=== PATIENT | male | born 1975 | race Caucasian/White ===

== ENCOUNTER 2017-10-09 16:34 | Inpatient (IN) | payer OTHER ==
[~2017-10-09] VITALS: Ht 185.4 cm; Wt 140.6 kg
[2017-10-09] MEDS ORDERED: TRAZODONE HCL150 MG ORAL (16:35)
[2017-10-09 16:45] VITALS: BP 113/69
[2017-10-09] MEDS ORDERED: Activated Charcoal 50gm/240ml Btl ORAL ONE (16:45)
[2017-10-09] MEDS ORDERED: Naloxone 0.4mg/ml Inj IVP ONE (16:45)
[2017-10-09 17:05] VITALS: BP 131/77
[2017-10-09 17:09] LABS: BASOPHILS % (AUTO) 1.2 % (0.0-2.0); EOSINOPHILS % (AUTO) 0.3 % (0.0-3.0); LYMPHOCYTES % (AUTO) 36.6 % (20.0-45.0); MEAN CORPUSCULAR HEMOGLOBIN 31.9 PG (27.0-31.0); MEAN CORPUSCULAR HGB CONC 33.5 G/DL (32.0-36.0); MEAN CORPUSCULAR VOLUME 95 FL (80-99); MEAN PLATELET VOLUME 7.4 FL (6.5-10.1); MONOCYTES % (AUTO) 5.3 % (1.0-10.0); NEUTROPHILS % (AUTO) 56.6 % (45.0-75.0); PLATELET COUNT 186 K/UL (150-450); RED BLOOD COUNT 4.56 M/UL (4.70-6.10); RED CELL DISTRIBUTION WIDTH 13.2 % (11.6-14.8); WHITE BLOOD COUNT 6.3 K/UL (4.8-10.8)
--- NOTE | 2017-10-09 17:19 | Emergency Room Report ---
History of Present Illness General Chief Complaint: Overdose Source: EMS Present Illness HPI 41-year-old male presents ED status post overdose. Per EMS patient sent text message to his friend stating endorsing suicidal ideation. Friend called 911. On patient at home unresponsive. Patient had alcohol bottles and trazodone bottle asked him. Patient lethargic upon arrival but protecting airway. Patient unable to provide any additional history at this time. Unclear whether patient has psychiatric history. No other aggravating or leading factors. No other associated symptoms Allergies: Coded Allergies: UNABLE TO ASSESS (Unverified , 10/09/17) Patient History Past Medical History: none Past Surgical History: none Pertinent Family History: none Social History: Reports: alcohol use, drug use, Denies: smoking Immunizations: UTD Reviewed Nursing Documentation: PMH: Agreed, PSxH: Agreed Nursing Documentation-PMH Past Medical History Deferred: Pt Cognitively Impaired Review of Systems All Other Systems: limited Physical Exam Vital Signs Date Time Temp Pulse Resp B/P (MAP) Pulse Ox O2 Delivery O2 Flow Rate FiO2 10/09/17 16:31 116 20 127/87 96 Nasal Cannula 4.0 10/09/17 16:45 98.2 Sp02 EP Interpretation: reviewed, normal General Appearance: lethargic, obese Head: normocephalic ENT: hearing grossly normal, normal pharynx, no angioedema, normal voice Neck: normal inspection Respiratory: chest non-tender, lungs clear, normal breath sounds, speaking full sentences Cardiovascular #1: tachycardia Gastrointestinal: normal bowel sounds, non tender, soft, non-distended, no guarding, no rebound Rectal: deferred Genitourinary: no CVA tenderness Musculoskeletal: back normal Neurologic: other - lethargic Psychiatric: other - lethargic Skin: normal inspection Lymphatic: normal inspection Medical Decision Making Diagnostic Impression: Primary Impression: Drug overdose Qualified Codes: T50.902A - Poisoning by unspecified drugs, medicaments and biological substances, intentional self-harm, initial encounter Additional Impressions: Suicidal behavior Qualified Codes: T14.91XA - Suicide attempt, initial encounter Alcohol intoxication Qualified Codes: F10.921 - Alcohol use, unspecified with intoxication delirium ER Course Hospital Course 41-year-old male presents to ED with altered mental status. Took trazodone and alcohol in suicide attempt Differential diagnoses include: Post ictal, Dilantin toxicity, alcohol toxicity , intracranial injury Clinical course patient placed on stretcher. On cardiac exercise physiologist. After initial history and physical ordered labs, IV fluids, EKG, CT brain. NG Tube placed - charcoal given narcan given without change Labs reviewed-electrolytes okay, no leukocytosis, hemoglobin/hematocrit stable, ETOH > 400, Utox negative CT brain shows no acute pathology Patient is still very altered cannot be medically cleared at this time. Will require admission psych evaluation upon admission case discussed with Dr. Araujo and he agreed to accept the patient to his service for further care and support i. I feel this is a highly complex case requiring extensive working including EKG/Rhythm strip, Xray/CT/US, Blood/urine lab work, repeat exams while in ED, and administration of strong opiates/narcotics for pain control, admission to hospital or close patient follow up. Diagnosis - drug overdose, suicidal ideation, alcohol intoxication Admitted to telemetry in serious condition Labs Test 10/09/17 16:39 10/09/17 17:40 White Blood Count 6.3 K/UL (4.8-10.8) Red Blood Count 4.56 M/UL (4.70-6.10) Hemoglobin 14.6 G/DL (14.2-18.0) Hematocrit 43.5 % (42.0-52.0) Mean Corpuscular Volume 95 FL (80-99) Mean Corpuscular Hemoglobin 31.9 PG (27.0-31.0) Mean Corpuscular Hemoglobin Concent 33.5 G/DL (32.0-36.0) Red Cell Distribution Width 13.2 % (11.6-14.8) Platelet Count 186 K/UL (150-450) Mean Platelet Volume 7.4 FL (6.5-10.1) Neutrophils (%) (Auto) 56.6 % (45.0-75.0) Lymphocytes (%) (Auto) 36.6 % (20.0-45.0) Monocytes (%) (Auto) 5.3 % (1.0-10.0) Eosinophils (%) (Auto) 0.3 % (0.0-3.0) Basophils (%) (Auto) 1.2 % (0.0-2.0) Sodium Level 145 MMOL/L (136-145) Potassium Level 3.3 MMOL/L (3.5-5.1) Chloride Level 107 MMOL/L (98-107) Carbon Dioxide Level 29 MMOL/L (21-32) Anion Gap 9 mmol/L (5-15) Blood Urea Nitrogen 16 mg/dL (7-18) Creatinine 1.0 MG/DL (0.55-1.30) Estimat Glomerular Filtration Rate > 60 mL/min (>60) Glucose Level 136 MG/DL (74-106) Calcium Level 8.3 MG/DL (8.5-10.1) Total Bilirubin 0.4 MG/DL (0.2-1.0) Aspartate Amino Transf (AST/SGOT) 31 U/L (15-37) Alanine Aminotransferase (ALT/SGPT) 40 U/L (12-78) Alkaline Phosphatase 69 U/L (46-116) Total Protein 7.3 G/DL (6.4-8.2) Albumin 3.6 G/DL (3.4-5.0) Globulin 3.7 g/dL Albumin/Globulin Ratio 1.0 (1.0-2.7) Salicylates Level 3.6 ug/mL (2.8-20) Acetaminophen Level < 2 MCG/ML (10-30) Serum Alcohol 423 mg/dL Urine Opiates Screen Negative (NEGATIVE) Urine Barbiturates Screen Negative (NEGATIVE) Phencyclidine (PCP) Screen Negative (NEGATIVE) Urine Amphetamines Screen Negative (NEGATIVE) Urine Benzodiazepines Screen Negative (NEGATIVE) Urine Cocaine Screen Negative (NEGATIVE) Urine Marijuana (THC) Screen Negative (NEGATIVE) EKG Diagnostic Results Rate: tachycardiac Rhythm: NSR ST Segments: no acute changes ASA given to the pt in ED: No Rhythm Strip Diag. Results EP Interpretation: yes Rhythm: NSR, no PVC's, no ectopy CT/MRI/US Diagnostic Results CT/MRI/US Diagnostic Results : Imaging Test Ordered: CT Head Impression no acute process Last Vital Signs Date Time Temp Pulse Resp B/P (MAP) Pulse Ox O2 Delivery O2 Flow Rate FiO2 10/09/17 17:05 98.2 122 25 131/77 98 Nasal Cannula 4.0 Status: improved Disposition: ADMITTED INPATIENT Condition: Serious BRYCE CARMICHAEL M.D. Oct 09, 2017 17:19
[2017-10-09 17:23] LABS: ANION GAP 9 mmol/L (5-15); CALCIUM 8.3 MG/DL (8.5-10.1); CARBON DIOXIDE 29 MMOL/L (21-32); CHLORIDE 107 MMOL/L (98-107); GLOMERULAR FILTRATION RATE > 60 mL/min (>60); POTASSIUM 3.3 MMOL/L (3.5-5.1); SODIUM 145 MMOL/L (136-145)
[2017-10-09 17:44] LABS: ALANINE AMINOTRANSFERASE 40 U/L (12-78); ALCOHOL 423 mg/dL; ASPARTATE AMINO TRANSFERASE 31 U/L (15-37); TOTAL PROTEIN 7.3 G/DL (6.4-8.2)
[2017-10-09 18:14] LABS: ACETAMINOPHEN < 2 MCG/ML (10-30)
[2017-10-09 18:43] VITALS: BP 135/85
[2017-10-09 19:22] VITALS: BP 148/72
[2017-10-09] MEDS ORDERED: Thiamine HCl 100 MG, Folic Acid 1 MG, Magnesium Sulfate 2,000 MG, Multivitamin - 12 Inj... IV ONE ×5 (19:30)
[2017-10-09 20:00] VITALS: BP 148/88
[2017-10-09 20:41] LABS: ABG PCO2 46.2 mmHg (35.0-45.0)
[2017-10-09 20:42] LABS: ABG ALLEN TEST POSITIVE; ABG BASE EXCESS 0.9
[2017-10-09] MEDS ORDERED: D5 1/2NS 1,000 ML IV SCH (20:45)
[2017-10-09] MEDS ORDERED: Potassium Chloride 40 MEQ in Sodium Chloride 500ML 550 ML IVPB ONE (21:00)
[2017-10-09] MEDS: Heparin 5000 units/ml inj SUBQ SCH (21:23)
[2017-10-09 22:40] LABS: ALANINE AMINOTRANSFERASE 37 U/L (12-78); ANION GAP 11 mmol/L (5-15); CALCIUM 7.9 MG/DL (8.5-10.1); CARBON DIOXIDE 28 MMOL/L (21-32); CHLORIDE 109 MMOL/L (98-107); GLOMERULAR FILTRATION RATE > 60 mL/min (>60); MAGNESIUM 1.8 MG/DL (1.8-2.4); POTASSIUM 3.9 MMOL/L (3.5-5.1); SODIUM 148 MMOL/L (136-145)
[2017-10-09 23:42] LABS: BASOPHILS % (AUTO) 0.5 % (0.0-2.0); LYMPHOCYTES % (AUTO) 31.3 % (20.0-45.0); MEAN CORPUSCULAR HEMOGLOBIN 33.5 PG (27.0-31.0); MEAN CORPUSCULAR HGB CONC 34.9 G/DL (32.0-36.0); MEAN CORPUSCULAR VOLUME 96 FL (80-99); MEAN PLATELET VOLUME 6.9 FL (6.5-10.1); MONOCYTES % (AUTO) 3.1 % (1.0-10.0); PLATELET COUNT 189 K/UL (150-450); RED BLOOD COUNT 4.28 M/UL (4.70-6.10); RED CELL DISTRIBUTION WIDTH 13.6 % (11.6-14.8); WHITE BLOOD COUNT 5.3 K/UL (4.8-10.8)
[2017-10-10] VITALS (7 sets, daily range): BP systolic 127–157; BP diastolic 66–100
[2017-10-10] MEDS: Thiamine 100mg in D5W 55ml IVPB SCH ×2 (01:06→23:57)
[2017-10-10] MEDS: Folic Acid 1 MG, Magnesium Sulfate 2,000 MG, Multivitamin - 12 Injection 10 ML in NS w/... IV SCH ×2 (01:07→23:58)
[2017-10-10] MEDS: Heparin 5000 units/ml inj SUBQ SCH ×2 (09:19→21:14)
--- NOTE | 2017-10-10 09:40 | Diagnostic Imaging Report ---
Indications: Altered mental status Technique: Spiral acquisitions obtained through the brain. Angled axial and coronal 5 x 5 mm slices were reconstructed. Total dose length product 1495 mGycm. CTDI vol(s) 70 mGy. Dose reduction achieved using automated exposure control Comparison: None Findings: No acute intracranial hemorrhage or edema. No mass effect or midline shift. Normal ramírez-white differentiation there is normal size ventricles. There is prominent retrocerebellar CSF density, either a prominent cisterna magna or retrocerebellar arachnoid cyst. There is minimal ethmoid sinus mucosal disease. Intact calvarium. Visualized orbits are unremarkable. There is a nasogastric tube in place. Prominent soft tissue in the left nasal fossa could represent a mucous retention cyst or focal polyposis. 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 The CT scanner at [facility] is accredited by the [employer] and the scans are performed using protocols designed to limit radiation exposure to as low as reasonably achievable to attain images of sufficient resolution adequate for diagnostic evaluation.
[2017-10-10] MEDS: D5 1/2NS 1,000 ML IV SCH ×3 (09:58→23:45)
--- NOTE | 2017-10-10 13:50 | History and Physical ---
History of Present Illness General Date patient seen: Oct 10, 2017 Time patient seen: 14:00 Reason for Hospitalization: Overdose Present Illness HPI 42y/o male with pmh of HTN, depression who presents with suicidal attempt. Per EMS, patient sent text message to his friend stating endorsing suicidal ideation. Friend called 911. Pt found to be unresponsive at home. Patient had alcohol bottles and trazodone bottle with him which was empty. Pt lethargic but noted to be able to protect his airway. In ER, pt have NGT placed and activated charcoal given. Narcan also given w/o change. EtOH>400. Utox negative. VSS. CT brain neg. Allergies: Coded Allergies: No Known Allergies (Unverified , 10/09/17) Medication History Scheduled Trazodone* (Trazodone*), 50 MG ORAL BEDTIME, (Reported) Patient History Healthcare decision maker Resuscitation status Full Code Advanced Directive on File No Past Medical/Surgical History Past Medical/Surgical History: (1) HTN (hypertension) (2) Depression Family History Family History: Patient reports no known family medical history. Social History Social History: (1) Alcohol abuse Review of Systems Constitutional: Reports: no symptoms Eye: Reports: no symptoms ENT: Reports: no symptoms Respiratory: Reports: no symptoms Cardiovascular: Reports: no symptoms Gastrointestinal: Reports: nausea Genitourinary: Reports: no symptoms Musculoskeletal: Reports: no symptoms Skin: Reports: no symptoms Psychiatric: Reports: no symptoms Neurological: Reports: no symptoms Endocrine: Reports: no symptoms Hematologic/Lymphatic: Reports: no symptoms All Other Systems: negative except mentioned in HPI Physical Exam Physical Exam Narrative General: alert, cooperative, no distress, appears stated age Head: normocephalic, without obvious abnormality, atraumatic Eyes: conjunctivae/corneas clear. PERRL, EOM's intact Throat: lips, mucosa, and tongue normal. MMM Neck: supple, symmetrical, trachea midline, and no JVD Lungs: clear to auscultation bilaterally Heart: regular rate and rhythm, S1, S2 normal, no murmur, click, rub or gallop Abdomen: soft, non-tender, non-distended, bowel sounds normal; no masses or organomegaly Extremities: extremities normal, atraumatic, no cyanosis or edema Pulses: 2+ and symmetric Skin: skin color, texture, turgor normal; no rashes or lesions Neurologic: grossly normal, no focal deficits Last 24 Hour Vital Signs Date Time Temp Pulse Resp B/P (MAP) Pulse Ox O2 Delivery O2 Flow Rate FiO2 10/10/17 12:12 98 Nasal Cannula 2.0 28 10/10/17 12:12 Nasal Cannula 2.0 28 10/10/17 12:00 97.9 91 20 132/86 98 Nasal Cannula 2.0 10/10/17 12:00 97.9 10/10/17 08:00 97.9 108 20 141/97 98 Nasal Cannula 2.0 10/10/17 07:21 103 10/10/17 04:10 97.9 118 21 130/78 95 Nasal Cannula 3.0 10/10/17 04:00 118 10/10/17 00:34 97.5 119 20 127/66 95 Nasal Cannula 2.0 10/10/17 00:00 124 10/09/17 20:43 97 Nasal Cannula 2.0 28 10/09/17 20:43 Nasal Cannula 2.0 28 10/09/17 20:05 129 10/09/17 20:00 97.7 115 20 148/88 96 Nasal Cannula 2.0 10/09/17 19:50 99.1 126 23 148/72 96 Nasal Cannula 2.0 10/09/17 19:22 99.1 126 23 148/72 96 Nasal Cannula 2.0 10/09/17 18:43 99.1 113 18 135/85 98 Nasal Cannula 2.0 10/09/17 17:05 98.2 122 25 131/77 98 Nasal Cannula 4.0 10/09/17 16:50 120 25 Nasal Cannula 4.0 10/09/17 16:45 98.2 139 25 113/69 94 Nasal Cannula 4.0 10/09/17 16:31 116 20 127/87 96 Nasal Cannula 4.0 Intake and Output 10/10/17 10/11/17 19:00 07:00 Intake Total 500 ml Balance 500 ml IV Total 500 ml Laboratory Tests Test 10/09/17 16:30 10/09/17 16:39 10/09/17 17:40 10/09/17 20:30 Aspartate Amino Transf (AST/SGOT) 32 U/L (15-37) 31 U/L (15-37) White Blood Count 6.3 K/UL (4.8-10.8) Red Blood Count 4.56 M/UL (4.70-6.10) L Hemoglobin 14.6 G/DL (14.2-18.0) Hematocrit 43.5 % (42.0-52.0) Mean Corpuscular Volume 95 FL (80-99) Mean Corpuscular Hemoglobin 31.9 PG (27.0-31.0) H Mean Corpuscular Hemoglobin Concent 33.5 G/DL (32.0-36.0) Red Cell Distribution Width 13.2 % (11.6-14.8) Platelet Count 186 K/UL (150-450) Mean Platelet Volume 7.4 FL (6.5-10.1) Neutrophils (%) (Auto) 56.6 % (45.0-75.0) Lymphocytes (%) (Auto) 36.6 % (20.0-45.0) Monocytes (%) (Auto) 5.3 % (1.0-10.0) Eosinophils (%) (Auto) 0.3 % (0.0-3.0) Basophils (%) (Auto) 1.2 % (0.0-2.0) Sodium Level 145 MMOL/L (136-145) Potassium Level 3.3 MMOL/L (3.5-5.1) L Chloride Level 107 MMOL/L (98-107) Carbon Dioxide Level 29 MMOL/L (21-32) Anion Gap 9 mmol/L (5-15) Blood Urea Nitrogen 16 mg/dL (7-18) Creatinine 1.0 MG/DL (0.55-1.30) Estimat Glomerular Filtration Rate > 60 mL/min (>60) Glucose Level 136 MG/DL (74-106) H Calcium Level 8.3 MG/DL (8.5-10.1) L Total Bilirubin 0.4 MG/DL (0.2-1.0) Alanine Aminotransferase (ALT/SGPT) 40 U/L (12-78) Alkaline Phosphatase 69 U/L (46-116) Total Protein 7.3 G/DL (6.4-8.2) Albumin 3.6 G/DL (3.4-5.0) Globulin 3.7 g/dL Albumin/Globulin Ratio 1.0 (1.0-2.7) Salicylates Level 3.6 ug/mL (2.8-20) Acetaminophen Level < 2 MCG/ML (10-30) L Serum Alcohol 423 mg/dL Hepatitis A IgM Antibody Negative (Negative) Hepatitis B Surface Antigen Negative (Negative) Hepatitis B Core IgM Antibody Negative (Negative) Hepatitis C Antibody 0.2 s/co ratio (0.0-0.9) Urine Opiates Screen Negative (NEGATIVE) Urine Barbiturates Screen Negative (NEGATIVE) Phencyclidine (PCP) Screen Negative (NEGATIVE) Urine Amphetamines Screen Negative (NEGATIVE) Urine Benzodiazepines Screen Negative (NEGATIVE) Urine Cocaine Screen Negative (NEGATIVE) Urine Marijuana (THC) Screen Negative (NEGATIVE) Arterial Blood pH 7.377 (7.350-7.450) Arterial Blood Partial Pressure CO2 46.2 mmHg (35.0-45.0) H Arterial Blood Partial Pressure O2 91.1 mmHg (75.0-100.0) Arterial Blood HCO3 26.5 mmol/L (22.0-26.0) H Arterial Blood Oxygen Saturation 96.2 % (92.0-98.0) Arterial Blood Base Excess 0.9 Dhiraj Test Positive Test 10/09/17 22:00 10/09/17 23:35 Sodium Level 148 MMOL/L (136-145) H Potassium Level 3.9 MMOL/L (3.5-5.1) Chloride Level 109 MMOL/L (98-107) H Carbon Dioxide Level 28 MMOL/L (21-32) Anion Gap 11 mmol/L (5-15) Blood Urea Nitrogen 16 mg/dL (7-18) Creatinine 1.0 MG/DL (0.55-1.30) Estimat Glomerular Filtration Rate > 60 mL/min (>60) Glucose Level 124 MG/DL (74-106) H Calcium Level 7.9 MG/DL (8.5-10.1) L Magnesium Level 1.8 MG/DL (1.8-2.4) Alanine Aminotransferase (ALT/SGPT) 37 U/L (12-78) Salicylates Level 2.8 ug/mL (2.8-20) White Blood Count 5.3 K/UL (4.8-10.8) Red Blood Count 4.28 M/UL (4.70-6.10) L Hemoglobin 14.3 G/DL (14.2-18.0) Hematocrit 41.1 % (42.0-52.0) L Mean Corpuscular Volume 96 FL (80-99) Mean Corpuscular Hemoglobin 33.5 PG (27.0-31.0) H Mean Corpuscular Hemoglobin Concent 34.9 G/DL (32.0-36.0) Red Cell Distribution Width 13.6 % (11.6-14.8) Platelet Count 189 K/UL (150-450) Mean Platelet Volume 6.9 FL (6.5-10.1) Neutrophils (%) (Auto) 65.0 % (45.0-75.0) Lymphocytes (%) (Auto) 31.3 % (20.0-45.0) Monocytes (%) (Auto) 3.1 % (1.0-10.0) Eosinophils (%) (Auto) 0.0 % (0.0-3.0) Basophils (%) (Auto) 0.5 % (0.0-2.0) Height (Feet): 6 Height (Inches): 1.00 Weight (Pounds): 310 Medications Current Medications Medications (Trade) Dose Ordered Sig/Isaura Route PRN Reason Start Time Stop Time Status Last Admin Dose Admin Acetaminophen (Tylenol) 650 mg Q6H PRN ORAL Mild Pain/Temp > 100.5 10/09/17 21:45 11/08/17 21:44 10/10/17 11:01 Dextrose/Sodium Chloride 1,000 ml @ 125 mls/hr Q8H IV 10/10/17 07:45 11/09/17 07:44 10/10/17 09:58 Folic Acid 1 mg/ Magnesium Sulfate 2000 mg/ Multivitamins 10 ml/Sodium Chloride 1,014.2 ml @ 125 mls/ hr Q24H IV 10/09/17 23:30 11/08/17 23:29 10/10/17 01:07 Heparin Sodium (Porcine) (Heparin 5000 units/ml) 5,000 units Q12HR SUBQ 10/09/17 21:00 11/08/17 20:59 10/10/17 09:19 Ondansetron HCl (Zofran) 4 mg Q4H PRN IVP Nausea & Vomiting 10/09/17 21:45 11/08/17 21:44 Thiamine HCl 100 mg/Dextrose 56 ml @ 112 mls/hr Q24H IVPB 10/09/17 23:30 12/15/17 23:29 10/10/17 01:06 Assessment/Plan Problem List: (1) Suicidal overdose ICD Codes: T50.902A - Poisoning by unspecified drugs, medicaments and biological substances, intentional self-harm, initial encounter SNOMED: 19318372, 05729971 (2) Alcohol intoxication with blood level over 0.3 ICD Codes: R78.0 - Finding of alcohol in blood SNOMED: 064579360 (3) Trazodone overdose (4) Depression ICD Codes: F32.9 - Major depressive disorder, single episode, unspecified SNOMED: 86969055 (5) HTN (hypertension) ICD Codes: I10 - Essential (primary) hypertension SNOMED: 16909829 (6) Hypokalemia ICD Codes: E87.6 - Hypokalemia SNOMED: 71120306 Status: stable Assessment/Plan Admit inpt Psych consulted Pt's mental status appears to have improved Will remove NGT today Monitor for signs of withdrawal or further toxicity Repeat labs in AM IVFs Resume diet DC pending psych eval D/w pt, RN, SW/CM regarding mgmt and dispo Debbie Vidal M.D. Oct 10, 2017 13:50
[2017-10-10] MEDS ORDERED: Simethicone 80mg tab ORAL PRN (19:00)
[2017-10-11 04:00] VITALS: BP 151/95
[2017-10-11 07:38] VITALS: BP 144/90
[2017-10-11] MEDS: D5 1/2NS 1,000 ML IV SCH (08:45)
[2017-10-11] MEDS: Heparin 5000 units/ml inj SUBQ SCH (09:00)
--- NOTE | 2017-10-11 09:10 | Consultation ---
History of Present Illness General Date patient seen: Oct 10, 2017 Chief Complaint: Overdose Present Illness Allergies: Coded Allergies: No Known Allergies (Unverified , 10/09/17) Medication History Scheduled Trazodone* (Trazodone*), 50 MG ORAL BEDTIME, (Reported) Patient History Healthcare decision maker Resuscitation status Full Code Advanced Directive on File No Physical Exam Last 24 Hour Vital Signs Date Time Temp Pulse Resp B/P (MAP) Pulse Ox O2 Delivery O2 Flow Rate FiO2 10/11/17 08:00 79 10/11/17 07:38 97.9 82 20 144/90 95 Room Air 10/11/17 04:00 75 10/11/17 04:00 98.4 87 20 151/95 96 Room Air 10/11/17 00:00 82 10/10/17 23:42 98.0 92 20 146/90 96 Room Air 10/10/17 20:00 93 10/10/17 19:48 98.0 92 20 147/100 96 Room Air 10/10/17 19:18 97 Nasal Cannula 2.0 28 10/10/17 19:18 Nasal Cannula 2.0 28 10/10/17 19:04 97.8 10/10/17 16:00 97.8 65 20 157/93 98 Room Air 10/10/17 15:27 109 10/10/17 12:12 98 Nasal Cannula 2.0 28 10/10/17 12:12 Nasal Cannula 2.0 28 10/10/17 12:00 97.9 91 20 132/86 98 Nasal Cannula 2.0 10/10/17 11:49 107 Height (Feet): 6 Height (Inches): 1.00 Weight (Pounds): 310 Medications Current Medications Medications (Trade) Dose Ordered Sig/Isaura Route PRN Reason Start Time Stop Time Status Last Admin Dose Admin Acetaminophen (Tylenol) 650 mg Q6H PRN ORAL Mild Pain/Temp > 100.5 10/09/17 21:45 11/08/17 21:44 10/11/17 08:58 Dextrose/Sodium Chloride 1,000 ml @ 125 mls/hr Q8H IV 10/10/17 07:45 11/09/17 07:44 10/11/17 08:45 Folic Acid 1 mg/ Magnesium Sulfate 2000 mg/ Multivitamins 10 ml/Sodium Chloride 1,014.2 ml @ 125 mls/ hr Q24H IV 10/09/17 23:30 11/08/17 23:29 10/10/17 23:58 Heparin Sodium (Porcine) (Heparin 5000 units/ml) 5,000 units Q12HR SUBQ 10/09/17 21:00 11/08/17 20:59 10/10/17 21:14 Ondansetron HCl (Zofran) 4 mg Q4H PRN IVP Nausea & Vomiting 10/09/17 21:45 11/08/17 21:44 Simethicone (Mylicon) 80 mg Q8H PRN ORAL Abdominal cramps 10/10/17 19:00 11/09/17 18:59 10/10/17 21:27 Thiamine HCl 100 mg/Dextrose 56 ml @ 112 mls/hr Q24H IVPB 10/09/17 23:30 11/08/17 23:29 10/10/17 23:57 Assessment/Plan Assessment/Plan MDD alcohol abuse the pt does not meet the criteria for 5150 nor IPLOC the pt maybe discharged after medically stable Chase Colunga M.D. Oct 11, 2017 09:10
[2017-10-11 12:00] VITALS: BP 148/84
[2017-10-11] MEDS ORDERED: Tubing IV Secondary IV ONE (13:19)
[2017-10-11] MEDS ORDERED: D5 1/2NS 1000ml IV ONE (13:19)
--- NOTE | 2017-10-11 17:59 | General Progress Note ---
Assessment/Plan Status: doing well, stable, progressing Assessment/Plan alcohol dependence mdd -dc not a 5150 -rec substance use tx Subjective Date patient seen: Oct 11, 2017 Neurologic/Psychiatric: Reports: anxiety, depressed, emotional problems Allergies: Coded Allergies: No Known Allergies (Unverified , 10/09/17) Objective Last 24 Hour Vital Signs Date Time Temp Pulse Resp B/P (MAP) Pulse Ox O2 Delivery O2 Flow Rate FiO2 10/11/17 12:00 97.9 73 18 148/84 96 Room Air 10/11/17 12:00 64 10/11/17 08:00 79 10/11/17 07:38 97.9 82 20 144/90 95 Room Air 10/11/17 04:00 75 10/11/17 04:00 98.4 87 20 151/95 96 Room Air 10/11/17 00:00 82 10/10/17 23:42 98.0 92 20 146/90 96 Room Air 10/10/17 20:00 93 10/10/17 19:48 98.0 92 20 147/100 96 Room Air 10/10/17 19:18 97 Nasal Cannula 2.0 28 10/10/17 19:18 Nasal Cannula 2.0 28 10/10/17 19:04 97.8 Intake and Output 10/11/17 10/12/17 19:00 07:00 Intake Total 759.2 ml Balance 759.2 ml IV Total 759.2 ml Height (Feet): 6 Height (Inches): 1.00 Weight (Pounds): 310 General Appearance: no apparent distress, alert Neurologic: alert, oriented x 3, responsive, normal mood/affect Chase Colunga M.D. Oct 11, 2017 17:59
--- NOTE | 2017-10-11 20:44 | Discharge Summary ---
Discharge Summary Hospital Course Date of Admission Oct 09, 2017 at 17:50 Date of Discharge Oct 11, 2017 at 13:20 Admitting Diagnosis OVERDOSE Reason for Hospitalization: suicidal overdose HPI 42y/o male with pmh of HTN, depression who presents with suicidal attempt. Per EMS, patient sent text message to his friend stating endorsing suicidal ideation. Friend called 911. Pt found to be unresponsive at home. Patient had alcohol bottles and trazodone bottle with him which was empty. Pt lethargic but noted to be able to protect his airway. In ER, pt have NGT placed and activated charcoal given. Narcan also given w/o change. EtOH>400. Utox negative. VSS. CT brain neg. Allergies: Consultations Psychiatry Hospital Course Pt was admitted and monitor for further signs of toxicity and withdrawal. NGT removed. Pt's diet was resumed which he tolerated. Vitals and labs remained stable. Pt's mental status improved. He was seen by psychiatry and pt regretful of his actions. Pt was cleared for discharge by psychiatry. He states that he will follow-up with psychiatry as an outpatient for mental health. Discharge Medications Continued Medications: Trazodone* (Trazodone*) 150 Mg Tablet 50 MG ORAL BEDTIME, TAB Discharge Condition Upon Discharge: stable Discharge Disposition Patient was discharged to Home (01) Discharge Diagnoses: (1) Alcohol intoxication with blood level over 0.3 (2) Suicidal overdose (3) Trazodone overdose (4) Hypokalemia (5) HTN (hypertension) (6) Depression Debbie Vidal M.D. Oct 11, 2017 20:44
--- NOTE | 2017-10-13 15:45 | Cardiology Report ---
APPROVED REPORT EKG Measurement Heart [id number] 134P54 [id number] Sinus tachycardia Nonspecific intraventricular conduction delay Borderline ECG
--- NOTE | 2017-10-13 15:47 | Cardiology Report ---
APPROVED REPORT EKG Measurement Heart [id number] [place] 134P58 [id number] Sinus tachycardia Otherwise normal ECG
== END 2017-10-11 13:20 | disposition home or self-care (01) | DRG 918 ==
LOC: EDBD 16:34 → EMR 17:43 → 2E 17:50 → EDBEDREQ 18:59 → 2E 20:43
DX: T43.212A Poisoning by selective serotonin and norepinephrine reuptake inhibitors, intentional self-harm, initial encounter (principal); I10 Essential (primary) hypertension; F32.9 Major depressive disorder, single episode, unspecified; Y92.009 Unspecified place in unspecified non-institutional (private) residence as the place of occurrence of the external cause; R41.82 Altered mental status, unspecified; F10.229 Alcohol dependence with intoxication, unspecified; E87.6 Hypokalemia
CPT/HCPCS: 36415; 36600; 51701; 70450; 80048; 80053; 80307; 80329; 82803; 83735; 84450; 84460; 85025; 86705; 86709; 86803; 87340; 93005; 94760; 99285